=== PATIENT | female | born 1955 | race Two or more races ===

== ENCOUNTER 2021-02-19 06:35 | Day surgery (SDC) | payer OTHER ==
[~2021-02-19 06:35] MED LIST: LIPITOR PO; MIRABEGRON PO; PEPCID AC20 MG PO
== END 2021-02-19 21:33 | disposition home or self-care (01) ==
LOC: CIR.AMB 06:35
PROVIDERS: ATTEND Surgery
DX: D05.11 Intraductal carcinoma in situ of right breast (principal); Z20.822 Contact with and (suspected) exposure to COVID-19